=== PATIENT | female | born 1985 | race Asian ===

== ENCOUNTER 2020-06-30 10:13 | Emergency (ER) | payer OTHER ==
[~2020-06-30] VITALS: Ht 162.6 cm; Wt 68.0 kg
[2020-06-30 10:27] VITALS: BP 112/49; TEMP 99
== END 2020-06-30 11:48 | disposition home or self-care (01) ==
LOC: ED 10:13
DX: N76.2 Acute vulvitis (principal)
CPT/HCPCS: 99282

== ENCOUNTER 2022-06-23 15:48 | Emergency (ER) | payer OTHER ==
[~2022-06-23] VITALS: Ht 162.6 cm; Wt 68.0 kg
[2022-06-23 15:57] VITALS: BP 102/37; TEMP 100.1
[2022-06-23 16:44] LABS: PLATELET COUNT 192 K/uL (152-353)
== END 2022-06-23 17:45 | disposition home or self-care (01) ==
LOC: ED 15:48
PROVIDERS: Family Medicine
DX: J02.9 Acute pharyngitis, unspecified (principal); B33.8 Other specified viral diseases
CPT/HCPCS: 81002; 85027; 87502; 87635; 87651; 99283; U0003